=== PATIENT | female | born 1975 | race Caucasian/White ===

== ENCOUNTER 2016-09-17 22:35 | Emergency (ER) | payer BC ==
--- NOTE | ~2016-09-17 | CT2 ---
[facility] A Service of [facility] RADIOLOGY TEXT RESULTS PATIENT: QUINCY HERCULES LOCATION: [facility] : 75 UNIT #: [id number] AGE: [address]: Shelton Fuller MD SEX: F ORDER DR: [id number] [facility] [address] [place], [place] [address] [id number] E MR#: [id number] Acc #: [id number] NAME: QUINCY HERCULES : 1975 SEX: F STUDY DATE/TIME: 09/18/2016 1:51 UNIT: [facility] ROOM: STUDY DESCRIPTION: CT Abd and Pelv W Cont Attending Physician: Shelton Fuller M.D. Ordering Physician: Shelton Fuller M.D. Primary Care Physician: Homer Ames M.D. MEDICAL IMAGING REPORT This report is preliminary unless electronic signature is present EXAM CT abdomen and pelvis with contrast INDICATION Generalized abdominal pain and nausea for the past 2 days. PROCEDURE Contrast-enhanced CT abdomen and pelvis. This CT exam was performed with one or more of the following radiation dose reduction techniques: automatic exposure control, adjustment of mA and/or kV according to patient size, and iterative reconstruction. COMPARISON 09/03/2015 FINDINGS ABDOMEN WITH CONTRAST: Included lung bases clear. Liver, spleen, kidneys, adrenal glands, pancreas unremarkable. Previous cholecystectomy. Bowel loops are nondilated, appendix is normal. PELVIS WITH CONTRAST: A 2.6 cm probable functional cyst in the left ovary. A 2.8 cm fibroid exophytic from the uterine fundus. No pelvic fluid. No aggressive-appearing bone lesion. IMPRESSION 1. No acute findings. 2. A 2.6 cm cyst in the left ovary, probably a benign functional cyst. 3. Exophytic fibroid from the uterine fundus. 4. No convincing evidence for active bowel inflammation. Previously demonstrated ileal inflammatory change is improved. [facility] A Service of [facility] RADIOLOGY TEXT RESULTS PATIENT: QUINCY HERCULES LOCATION: [facility] : 75 UNIT #: [id number] AGE: [address]: Shelton Fuller MD SEX: F ORDER DR: Dictated by... Adrien Valenzuela M.D. THIS IS AN ELECTRONICALLY VERIFIED REPORT Adrien Valenzuela M.D. at 09/18/2016 10:01 PM [place]/ortiz TD: 09/18/2016 02:55 JOB #: [id number] MEDICAL IMAGING REPORT Page 1 of 1 COPY
[~2016-09-17 22:35] MED LIST: ERY-TAB500 MG PO; HYDROCODON-ACE1 EAC9 PO; NAPROSYN500 MG PO; NO MEDICATIONS; PHENERGAN W/CO120 ML PO
[2016-09-18 00:18] LABS: BASOPHIL# 0.1 X10e3 (0-0.3); EOSINOPHIL# 0.4 X10e3 (0-0.7); EOSINOPHIL% 2.8 % (0.0-7.0); HEMATOCRIT 40.6 % (35.0-45.0); HEMOGLOBIN 13.3 gm/dL (12.0-16.0); LYMPHOCYTE# 3.1 X10e3 (1.0-3.5); LYMPHOCYTE% 20.4 % (17.0-45.0); MEAN CELL VOLUME 85.3 FL (83-96); MEAN CORPUSCULAR HEMOGLOBIN 27.9 PG (28-34); MEAN CORPUSCULAR HGB CONC 32.7 g/dL (30-36); MEAN PLATELET VOLUME 8.3 FL (6.5-11.5); MONOCYTE% 6.7 % (3.0-12.0); NEUTROPHIL# 10.3 X10e3 (1.5-7.1); NEUTROPHIL% 69.1 % (40-75); PLATELET COUNT 242 X10e3 (140-420); RED BLOOD COUNT 4.76 X10e (3.90-5.30); RED CELL DISTRIBUTION WIDTH 13.3 % (11.0-15.5)
[2016-09-18 00:19] LABS: DIFF IND NO
[2016-09-18 00:19] LABS: URINE SOURCE CLEAN CATCH
[2016-09-18 00:24] LABS: URINE APPEARANCE CLOUDY; URINE BILIRUBIN NEG (NEG); URINE BLOOD 3+ (NEG); URINE COLOR DK YELLOW; URINE GLUCOSE NEG (NEG); URINE KETONE TRACE (NEG); URINE LEUKOCYTE ESTERASE 2+ (NEG); URINE NITRATE NEG (NEG); URINE PROTEIN TRACE (NEG); URINE SPECIFIC GRAVITY 1.025 (1.003-1.035)
[2016-09-18 00:27] LABS: CULTURE INDICATED? YES; URINE BACTERIA AUWI NEG (NEGATIVE); URINE SQUAMOUS EPITHELIAL CELL OCC /[HPF]; UWBCS1 AUWI 50-100 (0-5)
[2016-09-18 00:45] LABS: ALBUMIN SERUM 3.7 g/dL (3.5-5.0); ALKALINE PHOSPHATASE 77 U/L (32-92); ALT (SGPT) 17 U/L (10-40); AMYLASE 14 U/L (0-46); AST (SGOT) 14 U/L (10-42); BILIRUBIN,TOTAL 0.2 mg/dL (0.2-2.0); BLOOD UREA NITROGEN 8 mg/dL (9-23); BUN/CREATININE RATIO 13.33; CARBON DIOXIDE 26 mmol/L (22-31); CHLORIDE 102 mmol/L (100-111); CREATININE SERUM 0.6 mg/dL (0.6-1.4); GLOM FILT RATE Estimated 113.2 mL/min (>60); GLUCOSE FASTING 95 mg/dL (70-110); LIPASE 16 U/L (22-51); POTASSIUM 3.5 mmol/L (3.5-5.1); PROTEIN TOTAL SERUM 7.2 g/dL (6.0-8.3); SODIUM 136 mmol/L (135-145)
[2016-09-18 00:47] LABS: BILIRUBIN, DIRECT <0.1 mg/dL (0.0-0.2); BILIRUBIN,INDIRECT 0.1 mg/dL (0.0-0.9)
== END 2016-09-18 03:02 | disposition home or self-care (01) ==
LOC: CED 22:35
PROVIDERS: Emergency Medicine
DX: N30.00 Acute cystitis without hematuria (principal); Z90.49 Acquired absence of other specified parts of digestive tract; Z88.2 Allergy status to sulfonamides; Z91.040 Latex allergy status
CPT/HCPCS: 36415; 74177; 80048; 80076; 81003; 82150; 83690; 84703; 85025; 87086; 96361; 96374; 96375; 99284; J2270; J2405; Q9967